=== PATIENT | female | born 1975 | race Caucasian/White ===

== ENCOUNTER 2021-02-07 13:03 | Outpatient (CLI) | payer OTHER | END 2021-02-07 13:04 | disposition home or self-care (01) | LOC: BICULT 13:03 | PROVIDERS: ATTEND Specialist | DX: R10.13 Epigastric pain (principal); K76.0 Fatty (change of) liver, not elsewhere classified | CPT/HCPCS: 76705 ==

== ENCOUNTER 2022-05-06 16:27 | Observation (INO) | payer OTHER ==
[2022-05-06 16:51] LABS: #Eosinphils 0.7 thou/uL (0.0-0.7); #Lymphocytes 1.9 thou/uL (1.20-3.40); #Monocytes 0.8 thou/uL (0.11-0.59); %Basophils 0.4 % (0.0-1.0); %Eosinophils 6.4 % (0.0-10.0); %Lymphocytes 18.4 % (21.0-51.0); %Monocytes 7.6 % (0.0-10.0); %Neutrophils 67.2 % (42.0-75.0); Hemoglobin 13.9 g/dL (12.0-16.0); Mean Corpuscular Hemoglobin 29.1 pg (27.0-31.0); Mean Corpuscular Volume 88.1 fL (78.0-98.0); Platelet Count 304 thou/uL (130-400); RBC Distribution Width 13.3 % (11.5-14.5); Red Blood Cell (RBC) Count 4.77 mill/uL (4.20-5.40); White Blood Cell (WBC) Count 10.4 thou/uL (4.8-10.8)
[2022-05-06 17:11] LABS: ALT (SGPT) 15 U/L (8-55); AST (SGOT) 14 U/L (5-34); Albumin 3.8 g/dL (3.5-5.0); Alkaline Phosphatase 92 U/L (40-110); Anion Gap 13 mmol/L (10-20); BUN (Urea Nitrogen) 18 mg/dL (7.0-18.7); Bilirubin, Total 0.2 mg/dL (0.2-1.2); Calc. Creatinine Clearance 0 mL/min (70-130); Carbon Dioxide 26 mmol/L (22-29); Chloride 102 mmol/L (98-107); Globulin 3.5 g/dL (2.4-3.5); Glucose 100 mg/dL (70-105); Lipase 28 U/L (8-78); Potassium 4.7 mmol/L (3.5-5.1); Protein, Total 7.3 g/dL (6.0-8.3); Sodium 136 mmol/L (136-145)
[2022-05-06] MEDS ORDERED: Nitroglycerin 2% Ointment 1 INCH/1 GM Packet ONE (18:29)
[2022-05-06] MEDS ORDERED: Enoxaparin Sodium 60 MG/0.6 ML SYRINGE ONE (18:40)
[2022-05-06] MEDS ORDERED: Enoxaparin Sodium 100 MG/ML SYRINGE ONE (18:40)
[2022-05-06 20:22] LABS: Troponin I Less than 0.010 ng/mL (< 0.028)
[2022-05-06] MEDS ORDERED: Dextrose 50% Abboject 50 ML SYRINGE SLOW IVP PRN (21:12)
[2022-05-06] MEDS ORDERED: Dextrose 5% in Water 1,000 ML IV PRN (21:12)
[2022-05-06] MEDS ORDERED: Acetaminophen 325 MG TAB PO PRN (21:18)
[2022-05-06] MEDS ORDERED: Ondansetron ODT 4 MG TAB PO PRN (21:18)
[2022-05-06] MEDS ORDERED: Acetaminophen 650 MG Suppository PR PRN (21:18)
[2022-05-06] MEDS ORDERED: Ondansetron PF 4 MG/2 ML Vial IVP PRN (21:18)
[2022-05-06] MEDS ORDERED: HumaLOG 300 UNITS/3 ML VIAL SC PRN ×2 (21:18)
[2022-05-06] MEDS ORDERED: Ketorolac Tromethamine 30 MG/ML VIAL IVP PRN (21:45)
[2022-05-06] MEDS ORDERED: Morphine 2 MG/ML VIAL SLOW IVP PRN (21:45)
[2022-05-06 23:14] VITALS: BMI 58.6
[2022-05-06] MEDS: cefTRIAXone\\ROCEPHIN 1 GM in Sodium Chloride 0.9% 100 ML IVPB SCH (23:14)
[2022-05-06 23:35] LABS: Troponin I Less than 0.010 ng/mL (< 0.028)
[2022-05-07 05:39] LABS: #Eosinphils 0.4 thou/uL (0.0-0.7); #Lymphocytes 1.5 thou/uL (1.20-3.40); #Monocytes 0.6 thou/uL (0.11-0.59); #Neutrophils 11.3 thou/uL (1.40-6.50); %Basophils 0.2 % (0.0-1.0); %Eosinophils 2.6 % (0.0-10.0); %Lymphocytes 10.6 % (21.0-51.0); %Monocytes 4.6 % (0.0-10.0); %Neutrophils 82.1 % (42.0-75.0); Hemoglobin 13.7 g/dL (12.0-16.0); Mean Corpuscular HGB CONC 32.5 g/dL (32.0-36.0); Mean Corpuscular Hemoglobin 28.8 pg (27.0-31.0); Mean Corpuscular Volume 88.5 fL (78.0-98.0); Mean Platelet Volume 7.8 fL (7.4-10.4); Platelet Count 281 thou/uL (130-400); RBC Distribution Width 13.1 % (11.5-14.5); Red Blood Cell (RBC) Count 4.78 mill/uL (4.20-5.40); White Blood Cell (WBC) Count 13.8 thou/uL (4.8-10.8)
[2022-05-07 06:03] LABS: Anion Gap 12 mmol/L (10-20); BUN (Urea Nitrogen) 17 mg/dL (7.0-18.7); Calc. Creatinine Clearance 205 mL/min (70-130); Carbon Dioxide 27 mmol/L (22-29); Chloride 102 mmol/L (98-107); Glucose 110 mg/dL (70-105); Potassium 4.4 mmol/L (3.5-5.1); Sodium 137 mmol/L (136-145)
[2022-05-07] MEDS: Enoxaparin Sodium 60 MG/0.6 ML SYRINGE SC SCH ×2 (07:59→20:46)
[2022-05-07] MEDS: Enoxaparin Sodium 100 MG/ML SYRINGE SC SCH ×2 (08:00→20:46)
[2022-05-07] MEDS ORDERED: hydrALAZINE 20 MG/ML VIAL SLOW IVP PRN (13:27)
[2022-05-07] MEDS ORDERED: Amlodipine 10 MG TAB PO SCH (13:30)
[2022-05-07] MEDS: cefTRIAXone\\ROCEPHIN 1 GM in Sodium Chloride 0.9% 100 ML IVPB SCH (20:46)
[2022-05-08] MEDS ORDERED: hydrALAZINE 25 MG TAB PO SCH (09:00)
[2022-05-08] MEDS ORDERED: Amlodipine 10 MG TAB PO SCH (09:00)
[2022-05-08] MEDS ORDERED: Cephalexin 250 MG CAP PO SCH (09:00)
[2022-05-08] MEDS ORDERED: Apixaban 5 MG TAB PO SCH (09:00)
[2022-05-08] MEDS ORDERED: Iopamidol-370 76% 500 ML 1 ML ONE (09:21)
[2022-05-08] MEDS ORDERED: diphenhydrAMINE 50 MG/ML VIAL IVP SCH (14:00)
[2022-05-08] MEDS ORDERED: Famotidine/PF 20 mg/2ml Vial SLOW IVP SCH (14:00)
[2022-05-08] MEDS ORDERED: Famotidine 40 MG/4 ML VIAL SLOW IVP SCH (15:00)
[2022-05-08] MEDS: methylPREDNISolone Sod Succ 40 MG VIAL IVP SCH ×2 (15:05→17:22)
[2022-05-08 15:37] VITALS: BP 146/71; TEMP 97.5
== END 2022-05-08 17:39 | disposition home or self-care (01) ==
LOC: ERS 16:27 → 2SW 19:41
PROVIDERS: ADMIT Internal Medicine; ATTEND Internal Medicine
DX: I82.411 Acute embolism and thrombosis of right femoral vein (principal); R07.89 Other chest pain; R06.02 Shortness of breath; I10 Essential (primary) hypertension; E11.9 Type 2 diabetes mellitus without complications; I25.2 Old myocardial infarction; F17.210 Nicotine dependence, cigarettes, uncomplicated; F12.10 Cannabis abuse, uncomplicated; I08.1 Rheumatic disorders of both mitral and tricuspid valves; E66.01 Morbid (severe) obesity due to excess calories; Z68.43 Body mass index [BMI] 50.0-59.9, adult; Z85.41 Personal history of malignant neoplasm of cervix uteri; Z79.84 Long term (current) use of oral hypoglycemic drugs; Z79.899 Other long term (current) drug therapy; Z91.041 Radiographic dye allergy status; Z20.822 Contact with and (suspected) exposure to COVID-19
CPT/HCPCS: 36415; 36416; 71045; 71275; 80048; 80053; 83690; 84484; 85025; 85379; 93005; 93306; 94760; 96372; 96374; 96375; 96376; G0378; J0360; J0696; J1200; J1650; J1885; J2270; J2920; J3490; Q9967; U0003; U0005

== ENCOUNTER 2025-01-12 12:09 | Inpatient (IN) | payer OTHER ==
[2025-01-12 13:15] LABS: #Basophils 0.05 10x3/uL (0.0-0.2); %Basophils 0.6 % (0.0-1.0); %Eosinophils 3.4 % (0.0-10.0); %Lymphocytes 13.3 % (21.0-51.0); Hematocrit 36.3 % (36.0-47.0); Hemoglobin 11.2 g/dL (12.0-16.0); Mean Corpuscular HGB CONC 30.9 g/dL (32.0-36.0); Mean Corpuscular Hemoglobin 26.7 pg (27.0-31.0); Mean Corpuscular Volume 86.6 fL (78.0-98.0); Mean Platelet Volume 10.6 fL (7.4-10.4); Platelet Count 222 10x3/uL (130-400); RBC Distribution Width 14.7 % (11.5-14.5); Red Blood Cell (RBC) Count 4.19 mill/uL (4.20-5.40)
[2025-01-12 13:37] LABS: ALT (SGPT) 24 U/L (Less than 34); AST (SGOT) 43 U/L (11-34); Albumin 3.1 g/dL (3.1-4.5); Alkaline Phosphatase 82 U/L (40-110); Anion Gap 15 mmol/L (10-20); BUN (Urea Nitrogen) 17 mg/dL (7.0-18.7); Bilirubin, Total 0.3 mg/dL (0.3-1.2); Calc. Creatinine Clearance 0 mL/min (70-130); Calcium 8.6 mg/dL (7.8-10.44); Carbon Dioxide 21 mmol/L (22-29); Chloride 106 mmol/L (98-107); Estimated GFR 80; Globulin 3.8 g/dL (2.4-3.5); Glucose 132 mg/dL (70-105); Potassium 4.3 mmol/L (3.5-5.1); Protein, Total 6.9 g/dL (6.0-8.3); Sodium 138 mmol/L (136-145)
[2025-01-12 13:39] LABS: Troponin I 0.018 ng/mL (< 0.028)
[2025-01-12] MEDS ORDERED: Furosemide 40 MG (4 mL) VIAL ONE (14:11)
[2025-01-12] MEDS ORDERED: Dextrose 5% in Water 1,000 ML IV PRN (15:22)
[2025-01-12] MEDS ORDERED: Senokot S 8.6-50 MG TAB PO PRN (15:22)
[2025-01-12] MEDS ORDERED: Calcium Carbonate 500 MG ChewTAB PO PRN (15:22)
[2025-01-12] MEDS ORDERED: Dextrose 50% Abboject 50 ML SYRINGE SLOW IVP PRN (15:22)
[2025-01-12] MEDS ORDERED: Insulin Lispro 100 UNIT/ML 10 ML VIAL SC PRN (15:22)
[2025-01-12] MEDS ORDERED: Glucagon 1 MG/ML KIT IM PRN (15:22)
[2025-01-12] MEDS ORDERED: Ondansetron ODT 4 MG TAB PO PRN (15:22)
[2025-01-12] MEDS ORDERED: Acetaminophen 650 MG Suppository PR PRN (15:22)
[2025-01-12] MEDS ORDERED: Ondansetron PF 4 MG/2 ML Vial IVP PRN (15:22)
[2025-01-12 16:20] LABS: Magnesium 1.8 mg/dL (1.6-2.6)
[2025-01-12] MEDS ORDERED: Ipratropium/Albuterol 3 ML NEB NEB PRN (16:20)
[2025-01-12] MEDS: Carvedilol 3.125 MG TAB PO SCH (20:14)
[2025-01-12 21:06] VITALS: BMI 61.2
[2025-01-12] MEDS: Acetaminophen 325 MG TAB PO PRN (21:34)
[2025-01-13 05:01] LABS: #Basophils 0.04 10x3/uL (0.0-0.2); %Basophils 0.5 % (0.0-1.0); %Lymphocytes 18.5 % (21.0-51.0); %Monocytes 10.2 % (0.0-10.0); %Neutrophils 67.2 % (42.0-75.0); Hemoglobin 12.3 g/dL (12.0-16.0); Mean Corpuscular HGB CONC 31.5 g/dL (32.0-36.0); Mean Corpuscular Volume 85.5 fL (78.0-98.0); Mean Platelet Volume 10.9 fL (7.4-10.4); Platelet Count 248 10x3/uL (130-400); RBC Distribution Width 15.1 % (11.5-14.5); Red Blood Cell (RBC) Count 4.56 mill/uL (4.20-5.40)
[2025-01-13 05:47] LABS: ALT (SGPT) 29 U/L (Less than 34); AST (SGOT) 42 U/L (11-34); Albumin 3.2 g/dL (3.1-4.5); Alkaline Phosphatase 106 U/L (40-110); Anion Gap 14 mmol/L (10-20); BUN (Urea Nitrogen) 20 mg/dL (7.0-18.7); Bilirubin, Total 0.3 mg/dL (0.3-1.2); Calc. Creatinine Clearance 123 mL/min (70-130); Calcium 8.5 mg/dL (7.8-10.44); Carbon Dioxide 29 mmol/L (22-29); Chloride 101 mmol/L (98-107); Estimated GFR 47; Globulin 4.1 g/dL (2.4-3.5); Glucose 160 mg/dL (70-105); Potassium 3.5 mmol/L (3.5-5.1); Protein, Total 7.3 g/dL (6.0-8.3); Sodium 140 mmol/L (136-145)
[2025-01-13] MEDS: Furosemide 40 MG (4 mL) VIAL SLOW IVP SCH (05:47)
[2025-01-13] MEDS: FLUoxetine HCl 20 MG CAP PO SCH (08:05)
[2025-01-13] MEDS: Pantoprazole 40 MG DR.TAB PO SCH (08:05)
[2025-01-13] MEDS: Enoxaparin 40 MG (0.4 mL) SYRINGE SC SCH ×2 (08:05→20:48)
[2025-01-13] MEDS: Insulin Lispro 100 UNIT/ML 10 ML VIAL SC PRN (11:38)
[2025-01-13] MEDS: Gabapentin 300 MG CAP PO SCH (20:49)
[2025-01-14] MEDS: glipiZIDE 5 MG TAB PO SCH (08:31)
[2025-01-14 12:23] VITALS: BP 144/58; TEMP 98.1
== END 2025-01-14 13:58 | disposition home or self-care (01) | DRG 291 ==
LOC: ERS 12:09 → OBS 15:23 → OBSVTOIN 01-13 09:54
PROVIDERS: ADMIT Internal Medicine; ATTEND Hospitalist
DX: I11.0 Hypertensive heart disease with heart failure (principal); I50.33 Acute on chronic diastolic (congestive) heart failure; Z68.44 Body mass index [BMI] 60.0-69.9, adult; K21.9 Gastro-esophageal reflux disease without esophagitis; E03.9 Hypothyroidism, unspecified; E66.01 Morbid (severe) obesity due to excess calories; E11.9 Type 2 diabetes mellitus without complications; F41.9 Anxiety disorder, unspecified; G47.33 Obstructive sleep apnea (adult) (pediatric); Z98.890 Other specified postprocedural states; Z87.891 Personal history of nicotine dependence; Z90.710 Acquired absence of both cervix and uterus; Z71.3 Dietary counseling and surveillance
CPT/HCPCS: 36415; 36416; 71045; 80053; 83735; 83880; 84443; 84484; 85025; 93005; 93306; 93970; 96374; J1650; J1815; J1940